=== PATIENT | female | born 1985 | race African-American/Black ===

== ENCOUNTER 2017-03-14 16:13 | Emergency (ER) | payer SELFPAY ==
[~2017-03-14] VITALS: Ht 180.3 cm; Wt 140.0 kg
[2017-03-14] MEDS ORDERED: SODIUM CHLORIDE 0.9% 1,000 ML IV ONE (16:35)
[2017-03-14] MEDS ORDERED: ONDANSETRON 4MG ODT PO STA (16:35)
[2017-03-14] MEDS ORDERED: MORPHINE SULFATE 4 MG/ML CPJ (NOT FOR IM USE) IV STA (16:35)
[2017-03-14 17:09] LABS: BASOPHILS % 1.1 % (0.0-2.0); EOSINOPHILS % 0.3 % (0.0-5.0); HEMATOCRIT. 35.4 % (36.0-48.0); LYMPHOCYTES % 10.3 % (20.0-50.0); MEAN CORPUSCULAR VOLUME 85.4 fL (81.0-99.0); MEAN PLATELET VOLUME 8.6 fl (7.4-10.4); MONOCYTES % 4.2 % (2.0-8.0); NEUTROPHILS % 84.1 % (40.0-76.0); PLATELET 296 x1000/uL (130-400); RED BLOOD CELL COUNT 4.15 mill/uL (4.2-5.4); RED CELL DISTRIBUTION WIDTH 14.8 % (11.6-14.6)
[2017-03-14 17:14] LABS: PROTHROMBIN TIME 10.7 sec (9.4-11.6)
[2017-03-14 17:19] LABS: HCG SCREEN NEGATIVE
[2017-03-14] MEDS ORDERED: SODIUM CHLORIDE 0.9% 1000ML BAG (SEPSIS BOLUS) IV ONE (17:30)
[2017-03-14] MEDS ORDERED: IOHEXOL-300 100 ML BOTTLE ONE (18:00)
[2017-03-14] MEDS ORDERED: SODIUM CHLORIDE 0.9% 10ML VIAL ONE (18:00)
[2017-03-14 18:16] LABS: CHLORIDE 103 mEq/L (98-107)
[2017-03-14 18:20] LABS: CARBON DIOXIDE 23 mEq/L (21-32)
[2017-03-14 18:25] LABS: TROPONIN I < 0.02 ng/mL (0.00-0.04)
[2017-03-14 18:38] LABS: CLARITY URINE CLOUDY (CLEAR); COLOR URINE YELLOW (YELLOW); GLUCOSE URINE NEGATIVE (NEGATIVE); KETONES URINE NEGATIVE (NEGATIVE); LEUKOCYTE ESTERASE URINE TRACE (NEGATIVE); NITRITE URINE NEGATIVE (NEGATIVE); OCCULT BLOOD URINE TRACE (NEGATIVE); PH URINE 8.5 (4.5-8.0); PROTEIN URINE 1+ (NEGATIVE); SPECIFIC GRAVITY URINE 1.016 (1.005-1.030); UROBILINOGEN URINE 0.2 E.U./dL (0.2-1.0)
[2017-03-14 21:30] VITALS: BP 156/79
== END 2017-03-14 21:50 | disposition home or self-care (01) ==
LOC: ER 16:30 → CANBEDREQ 23:27
DX: R11.2 Nausea with vomiting, unspecified (principal); R10.9 Unspecified abdominal pain; I51.7 Cardiomegaly; K44.9 Diaphragmatic hernia without obstruction or gangrene; I10 Essential (primary) hypertension; Z90.49 Acquired absence of other specified parts of digestive tract
CPT/HCPCS: 36415; 71010; 74177; 80053; 81001; 83605; 83690; 84484; 84703; 85025; 85610; 87040; 87086; 93005; 96361; 96374; 99285; A4216; J2270; Q0162; Q9967; J7030

== ENCOUNTER 2018-02-15 15:14 | Emergency (ER) | payer MEDICAID ==
[~2018-02-15] VITALS: Ht 172.7 cm; Wt 121.0 kg
[2018-02-15] MEDS ORDERED: ACETAMINOPHEN WITH CODEINE 300/30MG TABLET PO ONE (16:30)
[2018-02-15 17:09] VITALS: BP 160/90
== END 2018-02-15 18:14 | disposition home or self-care (01) ==
LOC: ER 15:16
DX: N63.10 Unspecified lump in the right breast, unspecified quadrant (principal)
CPT/HCPCS: 76641; 99284

== ENCOUNTER 2018-07-16 11:35 | Inpatient (IN) | payer MEDICAID ==
[~2018-07-16] VITALS: Ht 180.3 cm; Wt 113.4 kg
[2018-07-16] MEDS ORDERED: ONDANSETRON HCL 4MG/2ML INJ IV STA (12:30)
[2018-07-16] MEDS ORDERED: SODIUM CHLORIDE 0.9% 1,000 ML IV ONE (12:30)
[2018-07-16] MEDS ORDERED: METOCLOPRAMIDE HCL 10MG/2ML VIAL IV ONE (12:45)
[2018-07-16] MEDS ORDERED: MORPHINE SULFATE 4 MG/ML CPJ (NOT FOR IM USE) IV ONE (12:45)
[2018-07-16 13:10] LABS: BASOPHILS % 0.7 % (0.0-2.0); EOSINOPHILS % 1.5 % (0.0-5.0); HEMATOCRIT. 37.3 % (36.0-48.0); HEMOGLOBIN. 12.6 g/dL (12.0-16.0); MEAN CORPUSCULAR HEMOGLOBIN 29.1 pg (28.0-32.0); MEAN CORPUSCULAR VOLUME 86.3 fL (81.0-99.0); MEAN PLATELET VOLUME 8.4 fl (7.4-10.4); MONOCYTES % 8.2 % (2.0-8.0); NEUTROPHILS % 66.6 % (40.0-76.0); PLATELET 360 x1000/uL (130-400); RED BLOOD CELL COUNT 4.32 mill/uL (4.2-5.4); RED CELL DISTRIBUTION WIDTH 14.4 % (11.6-14.6)
[2018-07-16 13:17] LABS: INR 1.1; PROTHROMBIN TIME 10.9 sec (9.1-11.1)
[2018-07-16 13:20] LABS: CHLORIDE 104 mEq/L (98-107)
[2018-07-16 14:18] LABS: CLARITY URINE CLEAR (CLEAR); COLOR URINE YELLOW (YELLOW); KETONES URINE TRACE (NEGATIVE); LEUKOCYTE ESTERASE URINE TRACE (NEGATIVE); NITRITE URINE NEGATIVE (NEGATIVE); OCCULT BLOOD URINE NEGATIVE (NEGATIVE); PROTEIN URINE NEGATIVE (NEGATIVE)
[2018-07-16] MEDS ORDERED: KETOROLAC 30MG/ML VIAL IV ONE (16:30)
[2018-07-16] MEDS ORDERED: VISCOUS LIDOCAINE 2% 15 ML UDC PO ONE (16:30)
[2018-07-16] MEDS ORDERED: MAGNESIUM/ALUMINUM HYDROXIDE/SIMETHICONE 30ML UDC PO ONE (16:30)
[2018-07-16] MEDS ORDERED: LABETALOL HCL 20MG/4ML CARPUJECT IV ONE (17:15)
[2018-07-16] MEDS ORDERED: ONDANSETRON HCL 4MG/2ML INJ IV ONE (18:00)
[2018-07-16] MEDS ORDERED: LORAZEPAM 0.5MG TABLET PO PRN (19:15)
[2018-07-16] MEDS ORDERED: CLONIDINE 0.1MG TABLET PO PRN (19:15)
[2018-07-16] MEDS ORDERED: MAGNESIUM/ALUMINUM HYDROXIDE/SIMETHICONE 30ML UDC PO PRN (19:15)
[2018-07-16] MEDS ORDERED: IPRATROPIUM/ALBUTEROL 0.5-3(2.5)MG/3ML NEB INH PRN (19:15)
[2018-07-16] MEDS ORDERED: DOCUSATE SODIUM 100MG CAPSULE PO PRN (19:15)
[2018-07-16] MEDS ORDERED: GUAIFENESIN 200MG/10ML SUGAR FREE UDC PO PRN (19:15)
[2018-07-16] MEDS ORDERED: ACETAMINOPHEN 325MG TABLET PO PRN (19:15)
[2018-07-16] MEDS ORDERED: ONDANSETRON HCL 4MG/2ML INJ IV PRN (19:15)
[2018-07-16] MEDS ORDERED: POTASSIUM CHLORIDE 20MEQ TABLET SR PO NR (20:00)
[2018-07-16] MEDS ORDERED: KCL 20MEQ/100ML PREMIX 100 ML IV NR (20:15)
[2018-07-16] MEDS ORDERED: ZOLPIDEM TARTRATE 5MG TABLET PO PRN (21:00)
[2018-07-16] MEDS ORDERED: NA PHOS,M-B/NA PHOS,DI-BA ENEMA 118ML PR PRN (21:00)
[2018-07-17] MEDS: KETOROLAC 15MG/ML VIAL IV PRN ×2 (00:23→07:21)
[2018-07-17 01:00] VITALS: BP 123/82
[2018-07-17] MEDS ORDERED: CEFTRIAXONE 1 G PREMIX 50 ML IV SCH (02:00)
[2018-07-17 04:00] VITALS: BP 125/66
[2018-07-17] MEDS: METOCLOPRAMIDE 10MG/10 ML UDC PO SCH ×2 (06:50→12:40)
[2018-07-17] MEDS: SUCRALFATE 1 G/10 ML UDC PO SCH ×2 (06:50→12:40)
[2018-07-17 08:00] VITALS: BP 140/89
[2018-07-17] MEDS ORDERED: AMLODIPINE 10MG TABLET PO SCH (09:00)
[2018-07-17] MEDS ORDERED: PANTOPRAZOLE SODIUM 40 MG/VIAL IV SCH (09:00)
[2018-07-17 12:00] VITALS: BP 141/79
[2018-07-17 14:37] VITALS: BP 141/79
[2018-07-17 16:06] LABS: *AMPHETAMINES SCREEN URINE NEGATIVE (NEGATIVE)
[2018-07-17 16:07] LABS: *BARBITURATES SCREEN URINE NEGATIVE (NEGATIVE); *BENZODIAZEPINES SCREEN URINE NEGATIVE (NEGATIVE); *COCAINE SCREEN URINE NEGATIVE (NEGATIVE); METHADONE URINE SCREEN NEGATIVE (NEGATIVE); OPIATES URINE SCREEN NEGATIVE (NEGATIVE); PHENCYCLIDINE URINE SCREEN NEGATIVE (NEGATIVE)
[2018-07-17 16:20] LABS: CANNABINOID URINE SCREEN PRESUMTIVE POSITIVE (NEGATIVE)
== END 2018-07-17 15:15 | disposition home or self-care (01) | DRG 241 ==
LOC: ER 11:40 → 8WST 18:53 → EDBEDREQ 19:00 → ENRESERV 23:20 → 8WST 07-17 00:42 → UNDOADMIN 07-17 00:42 → 8WST 07-17 01:14 → UNDODISIN 07-17 15:15
PROVIDERS: ADMIT Internal Medicine; ATTEND Internal Medicine
DX: K29.70 Gastritis, unspecified, without bleeding (principal); E66.9 Obesity, unspecified; N39.0 Urinary tract infection, site not specified; F12.10 Cannabis abuse, uncomplicated; I10 Essential (primary) hypertension; I16.0 Hypertensive urgency; K21.9 Gastro-esophageal reflux disease without esophagitis
CPT/HCPCS: 36415; 74021; 80305; 81025; 83036; 84484; 93005; 96361; 96374; 96375; 96376; 99285; C9113; J0696; J1885; J2270; J2405; J2765; J3480; J3490; J7030; J7050; J8597

== ENCOUNTER 2019-04-16 11:50 | Emergency (ER) | payer MEDICAID ==
[~2019-04-16] VITALS: Ht 172.7 cm; Wt 114.0 kg
[2019-04-16] MEDS ORDERED: MORPHINE SULFATE 4 MG/ML CPJ (NOT FOR IM USE) IV STA (12:24)
[2019-04-16] MEDS ORDERED: SODIUM CHLORIDE 0.9% 1,000 ML IV ONE (12:24)
[2019-04-16] MEDS ORDERED: METOCLOPRAMIDE HCL 10MG/2ML VIAL IV ONE (12:30)
[2019-04-16 15:06] LABS: BASOPHILS % 0.5 % (0.0-2.0); EOSINOPHILS % 1.1 % (0.0-5.0); HEMATOCRIT. 30.7 % (36.0-48.0); HEMOGLOBIN. 10.6 g/dL (12.0-16.0); LYMPHOCYTES % 14.4 % (20.0-50.0); MEAN CORPUSCULAR HEMOGLOBIN 31.7 pg (28.0-32.0); MEAN PLATELET VOLUME 7.8 fl (7.4-10.4); MONOCYTES % 6.4 % (2.0-8.0); NEUTROPHILS % 77.6 % (40.0-76.0); PLATELET 299 x1000/uL (130-400); RED BLOOD CELL COUNT 3.34 mill/uL (4.2-5.4)
[2019-04-16 15:13] LABS: CHLORIDE 106 mEq/L (98-107)
[2019-04-16 15:33] LABS: CLARITY URINE CLEAR (CLEAR); COLOR URINE YELLOW (YELLOW); KETONES URINE 1+ (NEGATIVE); LEUKOCYTE ESTERASE URINE NEGATIVE (NEGATIVE); NITRITE URINE NEGATIVE (NEGATIVE); OCCULT BLOOD URINE NEGATIVE (NEGATIVE); PH URINE >=9.0 (4.5-8.0); PROTEIN URINE NEGATIVE (NEGATIVE)
[2019-04-16 15:34] LABS: PROTHROMBIN TIME 10.5 sec (9.6-11.0)
[2019-04-16 15:35] LABS: B-HCG QUANTITATIVE 16553 mIU/mL (<3)
[2019-04-16] MEDS ORDERED: MORPHINE SULFATE 4 MG/ML CPJ (NOT FOR IM USE) IV ONE (16:15)
[2019-04-16 17:30] VITALS: BP 151/67
== END 2019-04-16 17:42 | disposition home or self-care (01) ==
LOC: ER 12:34
DX: O21.9 Vomiting of pregnancy, unspecified (principal); O26.892 Other specified pregnancy related conditions, second trimester; R10.9 Unspecified abdominal pain; R51 Headache; R11.0 Nausea; Z3A.17 17 weeks gestation of pregnancy; Z90.49 Acquired absence of other specified parts of digestive tract
CPT/HCPCS: 36415; 76805; 80053; 81003; 82962; 83605; 83690; 84702; 85025; 85610; 96374; 96375; 96376; 99284; J2270; J2765; J7030; Z7610

== ENCOUNTER 2019-11-04 18:48 | Inpatient (IN) | payer MEDICAID ==
[~2019-11-04] VITALS: Ht 180.3 cm; Wt 113.4 kg
[2019-11-04] MEDS ORDERED: SODIUM CHLORIDE 0.9% 1,000 ML IV ONE (19:18)
[2019-11-04] MEDS ORDERED: ONDANSETRON HCL 4MG/2ML INJ IV ONE (19:30)
[2019-11-04] MEDS ORDERED: MORPHINE SULFATE 4 MG/ML CPJ (NOT FOR IM USE) IV ONE ×2 (19:45→22:30)
[2019-11-04 19:58] LABS: BASOPHILS % 0.9 % (0.0-2.0); HEMATOCRIT. 37.7 % (36.0-48.0); HEMOGLOBIN. 12.9 g/dL (12.0-16.0); MEAN CORPUSCULAR HEMOGLOBIN 31.8 pg (28.0-32.0); MEAN CORPUSCULAR VOLUME 92.8 fL (81.0-99.0); MEAN PLATELET VOLUME 8.1 fl (7.4-10.4); MONOCYTES % 8.3 % (2.0-8.0); NEUTROPHILS % 77.8 % (40.0-76.0); PLATELET 307 x1000/uL (130-400); RED BLOOD CELL COUNT 4.06 mill/uL (4.2-5.4); RED CELL DISTRIBUTION WIDTH 14.2 % (11.6-14.6)
[2019-11-04 20:01] LABS: CHLORIDE 106 mEq/L (98-107)
[2019-11-04 20:26] LABS: CLARITY URINE CLOUDY (CLEAR); COLOR URINE DARK YELLOW (YELLOW); KETONES URINE TRACE (NEGATIVE); LEUKOCYTE ESTERASE URINE 1+ (NEGATIVE); NITRITE URINE NEGATIVE (NEGATIVE); OCCULT BLOOD URINE NEGATIVE (NEGATIVE); PROTEIN URINE 1+ (NEGATIVE); SPECIFIC GRAVITY URINE 1.029 (1.005-1.030)
[2019-11-04 20:27] LABS: B-HCG QUANTITATIVE 25194 mIU/mL (<3)
[2019-11-04 20:45] LABS: *AMPHETAMINES SCREEN URINE NEGATIVE (NEGATIVE)
[2019-11-04 20:46] LABS: *BARBITURATES SCREEN URINE NEGATIVE (NEGATIVE); *BENZODIAZEPINES SCREEN URINE NEGATIVE (NEGATIVE); *COCAINE SCREEN URINE NEGATIVE (NEGATIVE); METHADONE URINE SCREEN NEGATIVE (NEGATIVE); OPIATES URINE SCREEN NEGATIVE (NEGATIVE); PHENCYCLIDINE URINE SCREEN NEGATIVE (NEGATIVE)
[2019-11-04 20:48] LABS: CANNABINOID URINE SCREEN PRESUMTIVE POSITIVE (NEGATIVE)
[2019-11-05] MEDS ORDERED: CEFTRIAXONE 1 G PREMIX 50 ML IV SCH ×2 (00:07→21:00)
[2019-11-05] MEDS ORDERED: ONDANSETRON HCL 4MG/2ML INJ IV PRN ×2 (02:30→04:00)
[2019-11-05 02:58] VITALS: BP 142/86
[2019-11-05] MEDS ORDERED: MORPHINE SULFATE 2 MG/ML CPJ (NOT FOR IM USE) IV PRN (04:00)
[2019-11-05] MEDS: DEXT 5%/0.45% NACL KCL 20MEQ/L 1,000 ML IV SCH ×2 (05:12→18:20)
[2019-11-05] MEDS ORDERED: POTASSIUM CHLORIDE 20MEQ TABLET SR PO SCH (09:00)
[2019-11-05] MEDS: ACETAMINOPHEN 325MG TABLET PO PRN ×2 (10:19→18:26)
[2019-11-05 20:00] VITALS: BP 142/79
[2019-11-05] MEDS ORDERED: METHYLDOPA 250MG TABLET PO SCH (21:00)
[2019-11-05] MEDS ORDERED: FOLIC ACID 1 MG, THIAMINE HCL 100 MG, MVI, ADULT NO.1 10 ML in DEXTROSE 5% WATER 1,000 ML IV SCH ×4 (23:30)
[2019-11-06] VITALS: BP 146/96
[2019-11-06] MEDS ORDERED: CEFTRIAXONE 1 G PREMIX 50 ML IV SCH (01:00)
[2019-11-06 04:00] VITALS: BP 131/80
[2019-11-06 05:37] LABS: CHLORIDE 104 mEq/L (98-107)
[2019-11-06] MEDS ORDERED: METHYLDOPA 250MG TABLET PO SCH ×2 (06:00→13:00)
[2019-11-06 06:38] LABS: BASOPHILS % 0.7 % (0.0-2.0); EOSINOPHILS % 4.1 % (0.0-5.0); HEMATOCRIT. 32.8 % (36.0-48.0); HEMOGLOBIN. 11.4 g/dL (12.0-16.0); LYMPHOCYTES % 25.8 % (20.0-50.0); MEAN CORPUSCULAR VOLUME 92.5 fL (81.0-99.0); MEAN PLATELET VOLUME 8.3 fl (7.4-10.4); MONOCYTES % 8.9 % (2.0-8.0); NEUTROPHILS % 60.5 % (40.0-76.0); PLATELET 262 x1000/uL (130-400); RED BLOOD CELL COUNT 3.55 mill/uL (4.2-5.4)
[2019-11-06 08:00] VITALS: BP 146/82
[2019-11-06] MEDS ORDERED: DEXT 5%/0.45% NACL KCL 20MEQ/L 1,000 ML IV SCH (08:00)
[2019-11-06] MEDS ORDERED: FAMOTIDINE 20MG/2ML VIAL IV SCH (09:00)
[2019-11-06] MEDS ORDERED: POTASSIUM CHLORIDE 20MEQ TABLET SR PO NR (09:15)
[2019-11-06 12:00] VITALS: BP 153/90
[2019-11-06] MEDS ORDERED: METH500T22 MT (12:06)
[2019-11-06] MEDS ORDERED: CEPH-569 MT (12:06)
[2019-11-06 12:32] VITALS: BP 153/90
== END 2019-11-06 13:41 | disposition home or self-care (01) | DRG 566 ==
LOC: ER 18:48 → 6EST 11-05 → EDBEDREQ 11-05 00:10 → EDBEDREQTM 11-05 00:10 → EDBEDREQDT 11-05 00:10 → ENRESERV 11-05 01:40
PROVIDERS: ADMIT Internal Medicine; ATTEND Internal Medicine
DX: O23.01 Infections of kidney in pregnancy, first trimester (principal); O10.911 Unspecified pre-existing hypertension complicating pregnancy, first trimester; O99.321 Drug use complicating pregnancy, first trimester; O99.211 Obesity complicating pregnancy, first trimester; O99.281 Endocrine, nutritional and metabolic diseases complicating pregnancy, first trimester; O21.1 Hyperemesis gravidarum with metabolic disturbance; F12.90 Cannabis use, unspecified, uncomplicated; E66.9 Obesity, unspecified; I16.0 Hypertensive urgency; Z3A.01 Less than 8 weeks gestation of pregnancy; Z90.49 Acquired absence of other specified parts of digestive tract; Z71.51 Drug abuse counseling and surveillance of drug abuser
CPT/HCPCS: 36415; 76801; 80048; 80053; 80305; 81003; 84702; 85025; 86850; 86900; 93970; 99285; J0696; J2270; J2405; J3411; J3490; J7030; J7070

== ENCOUNTER 2019-12-26 12:45 | Emergency (ER) | payer MEDICAID ==
[~2019-12-26] VITALS: Ht 167.6 cm; Wt 90.0 kg
[~2019-12-26 12:45] MED LIST: CEPH-569 MT; METH500T22 MT
[2019-12-26] MEDS ORDERED: SODIUM CHLORIDE 0.9% 1,000 ML IV ONE (13:31)
[2019-12-26] MEDS ORDERED: FAMOTIDINE 20MG/2ML VIAL IV ONE (13:45)
[2019-12-26] MEDS ORDERED: ONDANSETRON HCL 4MG/2ML INJ IV ONE ×2 (13:45→17:45)
[2019-12-26 14:15] LABS: BASOPHILS % 0.4 % (0.0-2.0); EOSINOPHILS % 2.6 % (0.0-5.0); HEMATOCRIT. 34.8 % (36.0-48.0); HEMOGLOBIN. 12.3 g/dL (12.0-16.0); LYMPHOCYTES % 15.9 % (20.0-50.0); MEAN CORPUSCULAR HEMOGLOBIN 33.6 pg (28.0-32.0); MEAN CORPUSCULAR VOLUME 94.7 fL (81.0-99.0); MONOCYTES % 6.4 % (2.0-8.0); NEUTROPHILS % 74.7 % (40.0-76.0); PLATELET 328 x1000/uL (130-400); RED BLOOD CELL COUNT 3.67 mill/uL (4.2-5.4); RED CELL DISTRIBUTION WIDTH 14.4 % (11.6-14.6)
[2019-12-26 14:23] LABS: CHLORIDE 107 mEq/L (98-107)
[2019-12-26 14:45] LABS: B-HCG QUANTITATIVE 25080 mIU/mL (<3)
[2019-12-26 15:22] LABS: CLARITY URINE CLEAR (CLEAR); COLOR URINE YELLOW (YELLOW); KETONES URINE 2+ (NEGATIVE); LEUKOCYTE ESTERASE URINE NEGATIVE (NEGATIVE); NITRITE URINE NEGATIVE (NEGATIVE); OCCULT BLOOD URINE NEGATIVE (NEGATIVE); PH URINE 7.5 (4.5-8.0); PROTEIN URINE 1+ (NEGATIVE); SPECIFIC GRAVITY URINE 1.019 (1.005-1.030)
[2019-12-26 15:41] LABS: *AMPHETAMINES SCREEN URINE NEGATIVE (NEGATIVE); *BARBITURATES SCREEN URINE NEGATIVE (NEGATIVE); *BENZODIAZEPINES SCREEN URINE NEGATIVE (NEGATIVE); *COCAINE SCREEN URINE NEGATIVE (NEGATIVE)
[2019-12-26 15:42] LABS: METHADONE URINE SCREEN NEGATIVE (NEGATIVE); OPIATES URINE SCREEN NEGATIVE (NEGATIVE); PHENCYCLIDINE URINE SCREEN NEGATIVE (NEGATIVE)
[2019-12-26 15:50] LABS: CANNABINOID URINE SCREEN PRESUMTIVE POSITIVE (NEGATIVE)
[2019-12-26] MEDS ORDERED: MORPHINE SULFATE 4 MG/ML CPJ (NOT FOR IM USE) IV ONE (17:45)
[2019-12-26 23:20] VITALS: BP 128/72
== END 2019-12-26 23:22 | disposition home or self-care (01) ==
LOC: ER 12:45
DX: O21.0 Mild hyperemesis gravidarum (principal); O10.012 Pre-existing essential hypertension complicating pregnancy, second trimester; M54.9 Dorsalgia, unspecified; F12.10 Cannabis abuse, uncomplicated; Z3A.14 14 weeks gestation of pregnancy; Z90.49 Acquired absence of other specified parts of digestive tract
CPT/HCPCS: 36415; 76805; 80053; 80305; 81003; 84702; 85025; 96361; 96374; 96375; 96376; 99285; J2270; J2405; J3490; J7030

== ENCOUNTER 2020-01-25 15:26 | Inpatient (IN) | payer MEDICAID ==
[~2020-01-25] VITALS: Ht 175.3 cm; Wt 130.2 kg
[2020-01-25] MEDS ORDERED: SODIUM CHLORIDE 0.9% 1,000 ML IV ONE ×3 (15:35→19:14)
[2020-01-25] MEDS ORDERED: ONDANSETRON HCL 4MG/2ML INJ IV STA ×2 (15:35→17:26)
[2020-01-25] MEDS ORDERED: ACETAMINOPHEN 325MG TABLET PO ONE (15:45)
[2020-01-25 16:32] LABS: HEMATOCRIT. 31.3 % (36.0-48.0); MEAN CORPUSCULAR HEMOGLOBIN 33.4 pg (28.0-32.0); MEAN CORPUSCULAR VOLUME 94.8 fL (81.0-99.0); MEAN PLATELET VOLUME 8.5 fl (7.4-10.4); PLATELET 209 x1000/uL (130-400); RED CELL DISTRIBUTION WIDTH 13.8 % (11.6-14.6)
[2020-01-25 16:40] LABS: CHLORIDE 108 mEq/L (98-107)
[2020-01-25 16:42] LABS: PROTHROMBIN TIME 10.8 sec (9.6-11.0)
[2020-01-25 16:46] LABS: ETHANOL BLOOD < 10 mg/dL
[2020-01-25 17:20] LABS: PLATELET ESTIMATE NORMAL
[2020-01-25] MEDS ORDERED: MORPHINE SULFATE 4 MG/ML CPJ (NOT FOR IM USE) IV STA (17:26)
[2020-01-25] MEDS ORDERED: MORPHINE SULFATE 4 MG/ML CPJ (NOT FOR IM USE) IV ONE ×3 (19:30→23:45)
[2020-01-25] MEDS ORDERED: METOCLOPRAMIDE HCL 10MG/2ML VIAL IV ONE (20:15)
[2020-01-25] MEDS ORDERED: ONDANSETRON HCL 4MG/2ML INJ IV ONE (23:45)
[2020-01-26 00:20] VITALS: BP 133/86
[2020-01-26] MEDS: DEXT 5%/LACTATED RINGERS 1,000 ML IV SCH ×3 (03:38→17:50)
[2020-01-26 04:00] VITALS: BP 153/91
[2020-01-26] MEDS: HYDROMORPHONE HCL/PF 2MG/ML CPJ IV PRN ×4 (06:27→23:36)
[2020-01-26 08:00] VITALS: BP 128/67
[2020-01-26 08:52] LABS: MEAN CORPUSCULAR HEMOGLOBIN 32.6 pg (28.0-32.0); MEAN CORPUSCULAR VOLUME 94.6 fL (81.0-99.0); MEAN PLATELET VOLUME 7.8 fl (7.4-10.4); PLATELET 198 x1000/uL (130-400); RED BLOOD CELL COUNT 3.06 mill/uL (4.2-5.4); RED CELL DISTRIBUTION WIDTH 13.7 % (11.6-14.6)
[2020-01-26 10:09] LABS: PLATELET ESTIMATE NORMAL
[2020-01-26 11:07] LABS: CLARITY URINE CLOUDY (CLEAR); COLOR URINE DARK YELLOW (YELLOW); KETONES URINE 1+ (NEGATIVE); LEUKOCYTE ESTERASE URINE NEGATIVE (NEGATIVE); NITRITE URINE POSITIVE (NEGATIVE); OCCULT BLOOD URINE NEGATIVE (NEGATIVE); PROTEIN URINE TRACE (NEGATIVE); SPECIFIC GRAVITY URINE 1.026 (1.005-1.030)
[2020-01-26 12:19] LABS: HEPATITIS B SURFACE ANTIGEN NEGATIVE
[2020-01-26 16:00] VITALS: BP 171/97
[2020-01-26 17:40] VITALS: BP 162/102
[2020-01-26 20:00] VITALS: BP 165/87
[2020-01-27] VITALS: BP 155/86
[2020-01-27 04:00] VITALS: BP 165/85
[2020-01-27] MEDS ORDERED: ACETAMINOPHEN WITH CODEINE 300/30MG TABLET PO PRN (07:00)
[2020-01-27] MEDS ORDERED: LABETALOL HCL 100MG TABLET PO SCH (07:45)
[2020-01-27 08:00] VITALS: BP 144/79
[2020-01-27] MEDS: HYDROMORPHONE HCL/PF 2MG/ML CPJ IV PRN (09:19)
[2020-01-27 11:23] VITALS: BP 120/70
[2020-01-27 14:57] LABS: METHADONE URINE SCREEN NEGATIVE (NEGATIVE)
[2020-01-27 14:58] LABS: PHENCYCLIDINE URINE SCREEN NEGATIVE (NEGATIVE)
[2020-01-27 15:00] LABS: *COCAINE SCREEN URINE NEGATIVE (NEGATIVE)
[2020-01-27 15:04] LABS: *BENZODIAZEPINES SCREEN URINE NEGATIVE (NEGATIVE)
[2020-01-27 15:05] LABS: *AMPHETAMINES SCREEN URINE NEGATIVE (NEGATIVE)
[2020-01-27 15:06] LABS: *BARBITURATES SCREEN URINE NEGATIVE (NEGATIVE)
[2020-01-27 15:09] LABS: CANNABINOID URINE SCREEN PRESUMTIVE POSITIVE (NEGATIVE); OPIATES URINE SCREEN PRESUMTIVE POSITIVE (NEGATIVE)
[2020-01-28 06:10] LABS: HIV SCREEN 4G Non Reactive (Non Reactive)
== END 2020-01-27 11:48 | disposition home or self-care (01) | DRG 566 ==
LOC: ER 15:26 → ENRESERV 20:34 → 6EST 01-26 00:01
PROVIDERS: ADMIT Specialist; ATTEND Specialist
DX: O16.2 Unspecified maternal hypertension, second trimester (principal); O21.9 Vomiting of pregnancy, unspecified; R32 Unspecified urinary incontinence; O34.219 Maternal care for unspecified type scar from previous cesarean delivery; O99.212 Obesity complicating pregnancy, second trimester; E66.9 Obesity, unspecified; Z3A.18 18 weeks gestation of pregnancy; Z79.2 Long term (current) use of antibiotics; Z90.49 Acquired absence of other specified parts of digestive tract; Z64.0 Problems related to unwanted pregnancy
CPT/HCPCS: 36415; 72195; 74181; 76770; 76805; 76815; 80053; 80305; 80320; 81003; 84702; 85025; 86592; 86762; 86850; 86900; 87077; 87186; 87340; 87389; 93005; 96374; 99291; J1170; J2270; J2405; J2765; J7030; J7121; G0480

== ENCOUNTER 2020-02-01 15:00 | Emergency (ER) | payer MEDICAID ==
[~2020-02-01] VITALS: Ht 170.2 cm; Wt 117.0 kg
[2020-02-01] MEDS ORDERED: ONDANSETRON HCL 4MG/2ML INJ IV STA (15:43)
[2020-02-01] MEDS ORDERED: MORPHINE SULFATE 4 MG/ML CPJ (NOT FOR IM USE) IV STA (15:43)
[2020-02-01] MEDS ORDERED: SODIUM CHLORIDE 0.9% 1,000 ML IV ONE ×2 (15:43)
[2020-02-01] MEDS ORDERED: LABETALOL 5MG/ML SYR 20 MG/4 ML SYRINGE IV ONE (15:45)
[2020-02-01 16:06] LABS: BASOPHILS % 0.5 % (0.0-2.0); EOSINOPHILS % 1.5 % (0.0-5.0); HEMATOCRIT. 35.4 % (36.0-48.0); HEMOGLOBIN. 12.3 g/dL (12.0-16.0); LYMPHOCYTES % 16.7 % (20.0-50.0); MEAN CORPUSCULAR HEMOGLOBIN 32.5 pg (28.0-32.0); MEAN CORPUSCULAR VOLUME 93.3 fL (81.0-99.0); MEAN PLATELET VOLUME 8.5 fl (7.4-10.4); MONOCYTES % 5.9 % (2.0-8.0); NEUTROPHILS % 75.4 % (40.0-76.0); PLATELET 259 x1000/uL (130-400); RED CELL DISTRIBUTION WIDTH 13.3 % (11.6-14.6)
[2020-02-01 16:13] LABS: CHLORIDE 105 mEq/L (98-107)
[2020-02-01 16:39] LABS: B-HCG QUANTITATIVE 8216 mIU/mL (<3)
[2020-02-01 16:51] LABS: CLARITY URINE CLOUDY (CLEAR); COLOR URINE DARK YELLOW (YELLOW); KETONES URINE NEGATIVE (NEGATIVE); LEUKOCYTE ESTERASE URINE 2+ (NEGATIVE); NITRITE URINE NEGATIVE (NEGATIVE); OCCULT BLOOD URINE 2+ (NEGATIVE); PROTEIN URINE 1+ (NEGATIVE); SPECIFIC GRAVITY URINE 1.009 (1.005-1.030)
[2020-02-01] MEDS ORDERED: CEFTRIAXONE 1 G PREMIX 50 ML IV ONE (17:00)
[2020-02-01] MEDS ORDERED: KCL 20MEQ/100ML PREMIX 100 ML IV ONE (17:00)
[2020-02-01 17:03] LABS: *AMPHETAMINES SCREEN URINE NEGATIVE (NEGATIVE); *BARBITURATES SCREEN URINE NEGATIVE (NEGATIVE); *BENZODIAZEPINES SCREEN URINE NEGATIVE (NEGATIVE); *COCAINE SCREEN URINE NEGATIVE (NEGATIVE); METHADONE URINE SCREEN NEGATIVE (NEGATIVE); OPIATES URINE SCREEN NEGATIVE (NEGATIVE)
[2020-02-01 17:04] LABS: PHENCYCLIDINE URINE SCREEN NEGATIVE (NEGATIVE)
[2020-02-01 17:07] LABS: CANNABINOID URINE SCREEN PRESUMTIVE POSITIVE (NEGATIVE)
[2020-02-01] MEDS ORDERED: MORPHINE SULFATE 4 MG/ML CPJ (NOT FOR IM USE) IV ONE (19:00)
[2020-02-01 20:30] VITALS: BP 156/79
== END 2020-02-01 20:30 | disposition home or self-care (01) ==
LOC: ER 15:00
DX: O26.892 Other specified pregnancy related conditions, second trimester (principal); O10.012 Pre-existing essential hypertension complicating pregnancy, second trimester; R10.9 Unspecified abdominal pain; R11.10 Vomiting, unspecified; Z3A.19 19 weeks gestation of pregnancy
CPT/HCPCS: 36415; 74181; 76805; 80053; 80305; 81003; 83690; 84702; 85025; 86850; 86900; 86901; 93005; 96361; 96365; 96375; 96376; 99285; J0696; J2270; J2405; J3480; J3490; J7030

== ENCOUNTER 2020-02-02 20:01 | Emergency (ER) | payer MEDICAID ==
[~2020-02-02] VITALS: Ht 182.9 cm; Wt 113.0 kg
[2020-02-02] MEDS ORDERED: ACETAMINOPHEN 325MG TABLET PO STA (23:48)
[2020-02-03] MEDS ORDERED: LABETALOL 5MG/ML SYR 20 MG/4 ML SYRINGE IV ONE
[2020-02-03 00:12] LABS: BASOPHILS % 0.4 % (0.0-2.0); EOSINOPHILS % 0.3 % (0.0-5.0); HEMATOCRIT. 32.8 % (36.0-48.0); HEMOGLOBIN. 11.6 g/dL (12.0-16.0); LYMPHOCYTES % 11.2 % (20.0-50.0); MEAN CORPUSCULAR VOLUME 93.7 fL (81.0-99.0); MONOCYTES % 4.6 % (2.0-8.0); NEUTROPHILS % 83.5 % (40.0-76.0); PLATELET 283 x1000/uL (130-400); RED CELL DISTRIBUTION WIDTH 13.2 % (11.6-14.6)
[2020-02-03 00:18] LABS: CHLORIDE 105 mEq/L (98-107)
[2020-02-03 00:21] LABS: PROTHROMBIN TIME 10.9 sec (9.6-11.0)
[2020-02-03 00:27] LABS: HCG SCREEN POSITIVE
[2020-02-03 00:42] LABS: B-HCG QUANTITATIVE 6952 mIU/mL (<3)
[2020-02-03 01:52] LABS: COLOR URINE DK YELLOW (YELLOW); KETONES URINE 4+ (NEGATIVE); LEUKOCYTE ESTERASE URINE 2+ (NEGATIVE); NITRITE URINE NEGATIVE (NEGATIVE); OCCULT BLOOD URINE NEGATIVE (NEGATIVE); PROTEIN URINE 2+ (NEGATIVE); SPECIFIC GRAVITY URINE 1.026 (1.005-1.030)
[2020-02-03 01:54] LABS: CLARITY URINE HAZY (CLEAR)
[2020-02-03 02:02] LABS: *AMPHETAMINES SCREEN URINE NEGATIVE (NEGATIVE); *BARBITURATES SCREEN URINE NEGATIVE (NEGATIVE); *BENZODIAZEPINES SCREEN URINE NEGATIVE (NEGATIVE); *COCAINE SCREEN URINE NEGATIVE (NEGATIVE)
[2020-02-03 02:03] LABS: METHADONE URINE SCREEN NEGATIVE (NEGATIVE); PHENCYCLIDINE URINE SCREEN NEGATIVE (NEGATIVE)
[2020-02-03 02:08] LABS: CANNABINOID URINE SCREEN PRESUMTIVE POSITIVE (NEGATIVE); OPIATES URINE SCREEN PRESUMTIVE POSITIVE (NEGATIVE)
[2020-02-03 07:33] VITALS: BP 155/89
== END 2020-02-03 07:23 | disposition home or self-care (01) ==
LOC: ER 20:01
DX: O26.892 Other specified pregnancy related conditions, second trimester (principal); R10.2 Pelvic and perineal pain; O13.2 Gestational [pregnancy-induced] hypertension without significant proteinuria, second trimester; Z3A.20 20 weeks gestation of pregnancy
CPT/HCPCS: 36415; 76805; 80053; 80305; 81003; 83690; 84702; 84703; 85025; 85610; 93005; 96374; 99285; J3490

== ENCOUNTER 2020-02-23 17:12 | Inpatient (IN) | payer MEDICAID ==
[~2020-02-23] VITALS: Ht 180.3 cm; Wt 115.7 kg
[2020-02-23] MEDS ORDERED: HYDRALAZINE 20MG/ML VIAL IV NR (17:57)
[2020-02-23] MEDS ORDERED: LABETALOL HCL 200MG TABLET PO SCH (17:58)
[2020-02-23] MEDS ORDERED: ONDANSETRON HCL 4MG/2ML INJ IM NR (18:15)
[2020-02-23 18:43] LABS: BASOPHILS % 0.3 % (0.0-2.0); HEMOGLOBIN. 10.4 g/dL (12.0-16.0); LYMPHOCYTES % 14.7 % (20.0-50.0); MEAN CORPUSCULAR HEMOGLOBIN 34.5 pg (28.0-32.0); MEAN CORPUSCULAR VOLUME 96.1 fL (81.0-99.0); MEAN PLATELET VOLUME 7.8 fl (7.4-10.4); MONOCYTES % 7.9 % (2.0-8.0); NEUTROPHILS % 75.1 % (40.0-76.0); PLATELET 275 x1000/uL (130-400); RED BLOOD CELL COUNT 3.01 mill/uL (4.2-5.4); RED CELL DISTRIBUTION WIDTH 14.5 % (11.6-14.6)
[2020-02-23 18:46] LABS: CLARITY URINE CLEAR (CLEAR); COLOR URINE DK YELLOW (YELLOW); KETONES URINE 3+ (NEGATIVE); LEUKOCYTE ESTERASE URINE 2+ (NEGATIVE); NITRITE URINE NEGATIVE (NEGATIVE); OCCULT BLOOD URINE NEGATIVE (NEGATIVE); PROTEIN URINE TRACE (NEGATIVE); SPECIFIC GRAVITY URINE 1.024 (1.005-1.030)
[2020-02-23 18:47] LABS: CHLORIDE 106 mEq/L (98-107)
[2020-02-23 18:53] LABS: D-DIMER 0.61 mg/L FEU (<0.50); PARTIAL THROMBOPLASTIN TIME 27.5 sec (23.4-31.0); PROTHROMBIN TIME 10.8 sec (9.6-11.0)
[2020-02-23 19:02] LABS: *AMPHETAMINES SCREEN URINE NEGATIVE (NEGATIVE); *BARBITURATES SCREEN URINE NEGATIVE (NEGATIVE); *BENZODIAZEPINES SCREEN URINE NEGATIVE (NEGATIVE); *COCAINE SCREEN URINE NEGATIVE (NEGATIVE)
[2020-02-23 19:03] LABS: METHADONE URINE SCREEN NEGATIVE (NEGATIVE); OPIATES URINE SCREEN NEGATIVE (NEGATIVE); PHENCYCLIDINE URINE SCREEN NEGATIVE (NEGATIVE)
[2020-02-23 19:07] LABS: CANNABINOID URINE SCREEN PRESUMTIVE POSITIVE (NEGATIVE)
[2020-02-23] MEDS ORDERED: LABETALOL HCL 5MG/ML VIAL 20ML IV PRN ×3 (20:00)
[2020-02-23] MEDS: BUTORPHANOL TARTRATE 2 MG/ML VIAL IM PRN ×2 (20:07→23:55)
[2020-02-24] MEDS: LACTATED RINGERS 1,000 ML IV SCH ×2 (02:05→09:46)
[2020-02-24] MEDS ORDERED: LABETALOL HCL 5MG/ML VIAL 20ML IV PRN ×3 (02:15→03:15)
[2020-02-24] MEDS: LABETALOL HCL 5MG/ML VIAL 20ML IV SCH ×2 (04:05→18:46)
[2020-02-24] MEDS ORDERED: FERROUS SULFATE 325MG TABLET PO SCH (09:00)
[2020-02-24] MEDS ORDERED: PRENATAL VIT/FE FUMARATE/FA TABLET PO SCH (09:00)
[2020-02-24 10:55] LABS: BASOPHILS % 0.5 % (0.0-2.0); EOSINOPHILS % 1.2 % (0.0-5.0); HEMATOCRIT. 29.3 % (36.0-48.0); HEMOGLOBIN. 10.4 g/dL (12.0-16.0); LYMPHOCYTES % 12.9 % (20.0-50.0); MEAN CORPUSCULAR HEMOGLOBIN 33.9 pg (28.0-32.0); MEAN CORPUSCULAR VOLUME 95.4 fL (81.0-99.0); MEAN PLATELET VOLUME 7.5 fl (7.4-10.4); MONOCYTES % 7.1 % (2.0-8.0); NEUTROPHILS % 78.3 % (40.0-76.0); PLATELET 267 x1000/uL (130-400); RED BLOOD CELL COUNT 3.07 mill/uL (4.2-5.4); RED CELL DISTRIBUTION WIDTH 14.3 % (11.6-14.6)
[2020-02-24 13:44] LABS: HEPATITIS B SURFACE ANTIGEN NEGATIVE
[2020-02-24] MEDS ORDERED: ONDANSETRON HCL 4MG/2ML INJ IV NR ×2 (14:00→14:15)
[2020-02-24] MEDS ORDERED: PANTOPRAZOLE SODIUM 40 MG/VIAL IV NR ×2 (14:15→20:15)
[2020-02-24] MEDS ORDERED: MAGNESIUM 4 G PREMIX 100 ML IV NR (14:15)
[2020-02-24] MEDS: MAGNESIUM 20 G PREMIX (L & D) 500 ML IV SCH (15:00)
[2020-02-24] MEDS ORDERED: MAGNESIUM 2 G PREMIX 50 ML IV NR (15:00)
[2020-02-24] MEDS ORDERED: HYDRALAZINE 20MG/ML VIAL IV SCH (18:00)
[2020-02-24] MEDS: ACETAMINOPHEN 325MG TABLET PO PRN (20:15)
[2020-02-24 20:26] LABS: CLARITY URINE CLEAR (CLEAR); COLOR URINE YELLOW (YELLOW); KETONES URINE TRACE (NEGATIVE); LEUKOCYTE ESTERASE URINE NEGATIVE (NEGATIVE); NITRITE URINE NEGATIVE (NEGATIVE); OCCULT BLOOD URINE 2+ (NEGATIVE); PH URINE 7.5 (4.5-8.0); PROTEIN URINE NEGATIVE (NEGATIVE); SPECIFIC GRAVITY URINE 1.009 (1.005-1.030)
[2020-02-24 20:32] LABS: CHLORIDE 106 mEq/L (98-107)
[2020-02-24 20:36] LABS: PARTIAL THROMBOPLASTIN TIME 26.1 sec (23.4-31.0); PROTHROMBIN TIME 10.5 sec (9.6-11.0)
[2020-02-24 20:50] LABS: BASOPHILS % 0.3 % (0.0-2.0); EOSINOPHILS % 1.3 % (0.0-5.0); HEMATOCRIT. 30.6 % (36.0-48.0); HEMOGLOBIN. 10.8 g/dL (12.0-16.0); LYMPHOCYTES % 15.6 % (20.0-50.0); MEAN CORPUSCULAR HEMOGLOBIN 33.5 pg (28.0-32.0); MEAN PLATELET VOLUME 7.8 fl (7.4-10.4); MONOCYTES % 7.9 % (2.0-8.0); NEUTROPHILS % 74.9 % (40.0-76.0); PLATELET 274 x1000/uL (130-400); RED BLOOD CELL COUNT 3.22 mill/uL (4.2-5.4); RED CELL DISTRIBUTION WIDTH 14.2 % (11.6-14.6)
[2020-02-24] MEDS: MORPHINE SULFATE 2 MG/ML CPJ (NOT FOR IM USE) IV PRN (21:27)
[2020-02-25] MEDS: LABETALOL HCL 5MG/ML VIAL 20ML IV SCH ×2 (00:05→06:00)
[2020-02-25] MEDS: HYDRALAZINE HCL 10MG TABLET PO SCH ×4 (00:56→18:11)
[2020-02-25] MEDS: MAGNESIUM 20 G PREMIX (L & D) 500 ML IV SCH (01:05)
[2020-02-25] MEDS ORDERED: MORPHINE SULFATE 4 MG/ML CPJ (NOT FOR IM USE) IV PRN ×2 (01:30→05:30)
[2020-02-25] MEDS: LACTATED RINGERS 1,000 ML IV SCH (05:10)
[2020-02-25] MEDS ORDERED: MORPHINE SULFATE 2 MG/ML CPJ (NOT FOR IM USE) IV PRN (06:00)
[2020-02-25 06:11] VITALS: BP 161/80
[2020-02-25] MEDS: MORPHINE SULFATE 2 MG/ML CPJ (NOT FOR IM USE) IV PRN (06:11)
[2020-02-25 06:43] LABS: CLARITY URINE CLEAR (CLEAR); COLOR URINE YELLOW (YELLOW); KETONES URINE 1+ (NEGATIVE); LEUKOCYTE ESTERASE URINE 1+ (NEGATIVE); NITRITE URINE NEGATIVE (NEGATIVE); OCCULT BLOOD URINE 3+ (NEGATIVE); PH URINE 6.5 (4.5-8.0); PROTEIN URINE TRACE (NEGATIVE); SPECIFIC GRAVITY URINE 1.018 (1.005-1.030)
[2020-02-25 06:43] LABS: CHLORIDE 104 mEq/L (98-107)
[2020-02-25] MEDS: LABETALOL HCL 200MG TABLET PO SCH ×3 (07:18→20:12)
[2020-02-25 07:34] LABS: D-DIMER 0.75 mg/L FEU (<0.50); PARTIAL THROMBOPLASTIN TIME 25.6 sec (23.4-31.0); PROTHROMBIN TIME 10.4 sec (9.6-11.0)
[2020-02-25 07:50] LABS: BASOPHILS % 0.4 % (0.0-2.0); HEMATOCRIT. 29.2 % (36.0-48.0); HEMOGLOBIN. 10.1 g/dL (12.0-16.0); MEAN CORPUSCULAR HEMOGLOBIN 33.2 pg (28.0-32.0); MEAN CORPUSCULAR VOLUME 96.3 fL (81.0-99.0); MEAN PLATELET VOLUME 7.9 fl (7.4-10.4); MONOCYTES % 8.9 % (2.0-8.0); NEUTROPHILS % 72.7 % (40.0-76.0); PLATELET 266 x1000/uL (130-400); RED BLOOD CELL COUNT 3.04 mill/uL (4.2-5.4); RED CELL DISTRIBUTION WIDTH 14.3 % (11.6-14.6)
[2020-02-25] MEDS ORDERED: PANTOPRAZOLE SODIUM 40 MG/VIAL IV SCH ×2 (09:00→21:00)
[2020-02-25] MEDS: ACETAMINOPHEN 325MG TABLET PO PRN (20:12)
[2020-02-26] MEDS: HYDRALAZINE HCL 10MG TABLET PO SCH ×3 (00:02→12:02)
[2020-02-26] MEDS: LABETALOL HCL 200MG TABLET PO SCH ×2 (02:35→08:05)
[2020-02-26] MEDS: ACETAMINOPHEN 325MG TABLET PO PRN (06:22)
[2020-02-26 07:31] LABS: BASOPHILS % 0.3 % (0.0-2.0); EOSINOPHILS % 2.8 % (0.0-5.0); HEMATOCRIT. 26.6 % (36.0-48.0); HEMOGLOBIN. 9.3 g/dL (12.0-16.0); LYMPHOCYTES % 24.6 % (20.0-50.0); MEAN CORPUSCULAR HEMOGLOBIN 33.3 pg (28.0-32.0); MEAN CORPUSCULAR VOLUME 95.9 fL (81.0-99.0); MEAN PLATELET VOLUME 7.8 fl (7.4-10.4); NEUTROPHILS % 61.3 % (40.0-76.0); PLATELET 242 x1000/uL (130-400); RED BLOOD CELL COUNT 2.78 mill/uL (4.2-5.4); RED CELL DISTRIBUTION WIDTH 14.1 % (11.6-14.6)
[2020-02-26 07:34] LABS: CHLORIDE 107 mEq/L (98-107)
[2020-02-28 15:06] LABS: CANNABINOID CONFIRMATION URINE Positive (.)
== END 2020-02-26 17:35 | disposition home or self-care (01) | DRG 566 ==
LOC: ER 17:12 → 8 EST LDRP 17:40 → 8 EST A/PP 02-25 10:35
PROVIDERS: ADMIT Specialist; ATTEND Specialist
DX: O99.322 Drug use complicating pregnancy, second trimester (principal); O99.342 Other mental disorders complicating pregnancy, second trimester; O99.282 Endocrine, nutritional and metabolic diseases complicating pregnancy, second trimester; O99.012 Anemia complicating pregnancy, second trimester; F32.9 Major depressive disorder, single episode, unspecified; F41.9 Anxiety disorder, unspecified; E83.41 Hypermagnesemia; F12.10 Cannabis abuse, uncomplicated; Z3A.23 23 weeks gestation of pregnancy; Z82.49 Family history of ischemic heart disease and other diseases of the circulatory system; Z83.3 Family history of diabetes mellitus; Z90.49 Acquired absence of other specified parts of digestive tract; O13.2 Gestational [pregnancy-induced] hypertension without significant proteinuria, second trimester
CPT/HCPCS: 36415; 76770; 76805; 80048; 80053; 80305; 80349; 81003; 83735; 84156; 84550; 85025; 85379; 85384; 86592; 86703; 86762; 86850; 86900; 86920; 87070; 87340; 93005; 93306; 96374; 99281; 99285; C9113; J0360; J0595; J2270; J2405; J3475; J3490

== ENCOUNTER 2020-04-20 11:24 | Emergency (ER) | payer MEDICAID ==
[~2020-04-20] VITALS: Ht 177.8 cm; Wt 105.0 kg
[2020-04-20] MEDS ORDERED: ONDANSETRON HCL 4MG/2ML INJ IV STA (12:20)
[2020-04-20] MEDS ORDERED: KETOROLAC 30MG/ML VIAL IV STA (12:20)
[2020-04-20] MEDS ORDERED: MORPHINE SULFATE 4 MG/ML CPJ (NOT FOR IM USE) IV STA (12:20)
[2020-04-20] MEDS ORDERED: SODIUM CHLORIDE 0.9% 1,000 ML IV ONE (12:30)
[2020-04-20 13:26] LABS: CHLORIDE 105 mEq/L (98-107)
[2020-04-20 13:38] LABS: BASOPHILS % 0.4 % (0.0-2.0); EOSINOPHILS % 0.2 % (0.0-5.0); HEMATOCRIT. 37.1 % (36.0-48.0); HEMOGLOBIN. 12.8 g/dL (12.0-16.0); LYMPHOCYTES % 14.8 % (20.0-50.0); MEAN CORPUSCULAR HEMOGLOBIN 31.9 pg (28.0-32.0); MEAN PLATELET VOLUME 8.6 fl (7.4-10.4); MONOCYTES % 3.6 % (2.0-8.0); PLATELET 287 x1000/uL (130-400); RED BLOOD CELL COUNT 4.03 mill/uL (4.2-5.4); RED CELL DISTRIBUTION WIDTH 13.2 % (11.6-14.6)
[2020-04-20 13:42] LABS: HCG SCREEN NEGATIVE
[2020-04-20] MEDS ORDERED: IOHEXOL-300 100 ML BOTTLE ONE (15:04)
[2020-04-20] MEDS ORDERED: POTASSIUM CHLORIDE 20MEQ TABLET SR PO ONE (15:30)
[2020-04-20 18:28] LABS: CLARITY URINE CLOUDY (CLEAR); COLOR URINE YELLOW (YELLOW); KETONES URINE 1+ (NEGATIVE); LEUKOCYTE ESTERASE URINE NEGATIVE (NEGATIVE); NITRITE URINE POSITIVE (NEGATIVE); OCCULT BLOOD URINE NEGATIVE (NEGATIVE); PROTEIN URINE TRACE (NEGATIVE); SPECIFIC GRAVITY URINE 1.086 (1.005-1.030)
[2020-04-20] MEDS ORDERED: HYDROCODONE/ACETAMINOPHEN 5/325MG TABLET PO ONE (19:00)
[2020-04-20] MEDS ORDERED: IBUPROFEN 600MG TABLET PO ONE (19:00)
[2020-04-20 19:21] VITALS: BP 214/113
== END 2020-04-21 06:57 | disposition home or self-care (01) ==
LOC: ER 11:24
DX: K52.9 Noninfective gastroenteritis and colitis, unspecified (principal); I10 Essential (primary) hypertension; Z90.49 Acquired absence of other specified parts of digestive tract; F17.290 Nicotine dependence, other tobacco product, uncomplicated
CPT/HCPCS: 36415; 74177; 80053; 81003; 83605; 83690; 84703; 85025; 93005; 96361; 96374; 96375; 99285; J1885; J2270; J2405; J7030; Q9967

== ENCOUNTER 2020-09-26 11:27 | Emergency (ER) | payer MEDICAID ==
[~2020-09-26] VITALS: Ht 172.7 cm; Wt 100.0 kg
[2020-09-26 12:04] LABS: BASOPHILS % 0.7 % (0.0-2.0); HEMATOCRIT. 41.1 % (36.0-48.0); HEMOGLOBIN. 14.2 g/dL (12.0-16.0); LYMPHOCYTES % 10.1 % (20.0-50.0); MEAN CORPUSCULAR HEMOGLOBIN 31.7 pg (28.0-32.0); MEAN CORPUSCULAR VOLUME 91.9 fL (81.0-99.0); MEAN PLATELET VOLUME 8.2 fl (7.4-10.4); MONOCYTES % 4.5 % (2.0-8.0); NEUTROPHILS % 84.7 % (40.0-76.0); PLATELET 310 x1000/uL (130-400); RED BLOOD CELL COUNT 4.47 mill/uL (4.2-5.4); RED CELL DISTRIBUTION WIDTH 13.1 % (11.6-14.6)
[2020-09-26] MEDS: SODIUM CHLORIDE 0.9% 1,000 ML IV ONE (12:04)
[2020-09-26] MEDS: METOCLOPRAMIDE HCL 10MG/2ML VIAL IV STA (12:04)
[2020-09-26] MEDS: FAMOTIDINE 20MG/2ML VIAL IV STA (12:04)
[2020-09-26 12:15] LABS: INR 1.1; PROTHROMBIN TIME 11.3 sec (9.6-11.0)
[2020-09-26 12:16] LABS: CHLORIDE 101 mEq/L (98-107)
[2020-09-26 12:18] LABS: HCG SCREEN NEGATIVE
[2020-09-26 12:20] LABS: ETHANOL BLOOD < 10 mg/dL
[2020-09-26] MEDS: KETOROLAC 15MG/ML VIAL IV NR (12:44)
[2020-09-26] MEDS ORDERED: DICYCLOMINE HCL 10MG CAPSULE PO ONE (14:00)
[2020-09-26] MEDS: ONDANSETRON HCL 4MG/2ML INJ IV ONE (14:12)
[2020-09-26] MEDS: DICYCLOMINE HCL 10MG/ML 2ML AMP IM ONE (14:13)
[2020-09-26 14:18] LABS: CLARITY URINE CLEAR (CLEAR); COLOR URINE YELLOW (YELLOW); KETONES URINE 1+ (NEGATIVE); LEUKOCYTE ESTERASE URINE TRACE (NEGATIVE); NITRITE URINE NEGATIVE (NEGATIVE); OCCULT BLOOD URINE NEGATIVE (NEGATIVE); PROTEIN URINE 2+ (NEGATIVE); SPECIFIC GRAVITY URINE 1.017 (1.005-1.030)
[2020-09-26 14:25] LABS: *AMPHETAMINES SCREEN URINE NEGATIVE (NEGATIVE); *BARBITURATES SCREEN URINE NEGATIVE (NEGATIVE); PHENCYCLIDINE URINE SCREEN NEGATIVE (NEGATIVE)
[2020-09-26 14:26] LABS: *BENZODIAZEPINES SCREEN URINE NEGATIVE (NEGATIVE); *COCAINE SCREEN URINE NEGATIVE (NEGATIVE); METHADONE URINE SCREEN NEGATIVE (NEGATIVE); OPIATES URINE SCREEN NEGATIVE (NEGATIVE)
[2020-09-26 14:31] LABS: CANNABINOID URINE SCREEN PRESUMTIVE POSITIVE (NEGATIVE)
[2020-09-26 15:30] VITALS: BP 124/86
[2020-09-26] MEDS ORDERED: LIDOCAINE 5% PATCH TOP SCH (15:30)
[2020-09-26] MEDS ORDERED: DEXAMETHASONE 10 MG/ML VIAL IV ONE (15:30)
[2020-09-26] MEDS ORDERED: DICY10CA88 MT (16:19)
[2020-09-26] MEDS ORDERED: ONDA4TAB5 MT (16:19)
[2020-09-26] MEDS ORDERED: IBUP-2028 MT (16:19)
== END 2020-09-26 16:30 | disposition home or self-care (01) ==
LOC: ER 11:30
DX: R10.11 Right upper quadrant pain (principal); J45.909 Unspecified asthma, uncomplicated; I10 Essential (primary) hypertension; Z90.49 Acquired absence of other specified parts of digestive tract
CPT/HCPCS: 36415; 74176; 80053; 80305; 80320; 81003; 83690; 84703; 85025; 85610; 93005; 96361; 96372; 96374; 96375; 99284; J0500; J1885; J2405; J2765; J3490; J7030; Z7610; G0480

== ENCOUNTER 2021-07-11 17:26 | Inpatient (IN) | payer MEDICAID ==
[~2021-07-11] VITALS: Ht 172.7 cm; Wt 95.7 kg
[~2021-07-11 17:26] MED LIST changes: +DICY10CA88 MT; +IBUP-2028 MT; +ONDA4TAB5 MT
[2021-07-11] MEDS ORDERED: METOCLOPRAMIDE HCL 10MG/2ML VIAL IV STA (17:55)
[2021-07-11] MEDS ORDERED: SODIUM CHLORIDE 0.9% 1,000 ML IV ONE (18:00)
[2021-07-11] MEDS ORDERED: MORPHINE SULFATE 4 MG/ML CPJ (NOT FOR IM USE) IV ONE (18:15)
[2021-07-11 20:45] LABS: BASOPHILS % 0.8 % (0.0-2.0); EOSINOPHILS % 0.7 % (0.0-5.0); LYMPHOCYTES % 11.7 % (20.0-50.0); MEAN CORPUSCULAR HEMOGLOBIN 30.5 pg (28.0-32.0); MEAN CORPUSCULAR VOLUME 91.7 fL (81.0-99.0); MEAN PLATELET VOLUME 8.9 fl (7.4-10.4); MONOCYTES % 3.5 % (2.0-8.0); NEUTROPHILS % 83.3 % (40.0-76.0); PLATELET 232 x1000/uL (130-400); RED BLOOD CELL COUNT 4.26 mill/uL (4.2-5.4); RED CELL DISTRIBUTION WIDTH 12.9 % (11.6-14.6)
[2021-07-11 20:50] LABS: CHLORIDE 105 mEq/L (98-107)
[2021-07-11 20:54] LABS: ETHANOL BLOOD < 10 mg/dL
[2021-07-11 22:45] LABS: CLARITY URINE CLEAR (CLEAR); COLOR URINE YELLOW (YELLOW); KETONES URINE 1+ (NEGATIVE); LEUKOCYTE ESTERASE URINE NEGATIVE (NEGATIVE); NITRITE URINE NEGATIVE (NEGATIVE); OCCULT BLOOD URINE NEGATIVE (NEGATIVE); PH URINE 7.5 (4.5-8.0); PROTEIN URINE NEGATIVE (NEGATIVE); SPECIFIC GRAVITY URINE 1.018 (1.005-1.030)
[2021-07-11] MEDS ORDERED: HYDRALAZINE 20MG/ML VIAL IV ONE (23:15)
[2021-07-11] MEDS ORDERED: ONDANSETRON HCL 4MG/2ML INJ IV ONE (23:15)
[2021-07-11] MEDS ORDERED: KETOROLAC 30MG/ML VIAL IV ONE (23:15)
[2021-07-11] MEDS: LACTATED RINGERS 1,000 ML IV SCH (23:48)
[2021-07-12] MEDS: LACTATED RINGERS 1,000 ML IV SCH (00:42)
[2021-07-12] MEDS ORDERED: ACETAMINOPHEN 325MG TABLET PO PRN (01:00)
[2021-07-12] MEDS ORDERED: HYDROCODONE/ACETAMINOPHEN 5/325MG TABLET PO PRN (01:00)
[2021-07-12] MEDS ORDERED: IPRATROPIUM/ALBUTEROL 0.5-3(2.5)MG/3ML NEB NEB PRN (01:00)
[2021-07-12] MEDS ORDERED: CLONIDINE 0.1MG TABLET PO PRN (01:00)
[2021-07-12] MEDS ORDERED: ONDANSETRON HCL 4MG/2ML INJ IV PRN (01:00)
[2021-07-12] MEDS: SODIUM CHLORIDE 0.9% 1,000 ML IV SCH ×2 (01:00→21:26)
[2021-07-12] MEDS ORDERED: MAGNESIUM/ALUMINUM HYDROXIDE/SIMETHICONE 30ML UDC PO PRN (01:00)
[2021-07-12] MEDS ORDERED: DOCUSATE SODIUM 100MG CAPSULE PO PRN (01:00)
[2021-07-12] MEDS ORDERED: ENOXAPARIN 30MG/0.3ML SYR SUBCUT SCH (09:00)
[2021-07-12] MEDS: MORPHINE SULFATE 2 MG/ML CPJ (NOT FOR IM USE) IV PRN ×3 (09:24→21:49)
[2021-07-12 09:50] VITALS: BP 175/100
[2021-07-12] MEDS ORDERED: NALOXONE HCL 0.4MG/ML VIAL IV PRN (10:00)
[2021-07-12 10:22] VITALS: BP 175/100
[2021-07-12 11:32] LABS: *AMPHETAMINES SCREEN URINE NEGATIVE (NEGATIVE); *BARBITURATES SCREEN URINE NEGATIVE (NEGATIVE); *BENZODIAZEPINES SCREEN URINE NEGATIVE (NEGATIVE); *COCAINE SCREEN URINE NEGATIVE (NEGATIVE)
[2021-07-12 11:33] LABS: METHADONE URINE SCREEN NEGATIVE (NEGATIVE); PHENCYCLIDINE URINE SCREEN NEGATIVE (NEGATIVE)
[2021-07-12 11:44] LABS: CANNABINOID URINE SCREEN PRESUMTIVE POSITIVE (NEGATIVE); OPIATES URINE SCREEN PRESUMTIVE POSITIVE (NEGATIVE)
[2021-07-12 12:00] VITALS: BP 192/98
[2021-07-12] MEDS: AMLODIPINE 5MG TABLET PO SCH (13:57)
[2021-07-12 17:09] LABS: BASOPHILS % 0.4 % (0.0-2.0); EOSINOPHILS % 1.1 % (0.0-5.0); HEMATOCRIT. 35.4 % (36.0-48.0); HEMOGLOBIN. 11.9 g/dL (12.0-16.0); LYMPHOCYTES % 26.3 % (20.0-50.0); MEAN CORPUSCULAR HEMOGLOBIN 30.9 pg (28.0-32.0); MEAN CORPUSCULAR VOLUME 92.2 fL (81.0-99.0); NEUTROPHILS % 62.2 % (40.0-76.0); PLATELET 281 x1000/uL (130-400); RED BLOOD CELL COUNT 3.84 mill/uL (4.2-5.4); RED CELL DISTRIBUTION WIDTH 13.1 % (11.6-14.6)
[2021-07-12 17:24] LABS: CHLORIDE 104 mEq/L (98-107)
[2021-07-12 17:31] LABS: LDL CHOLESTEROL 72 mg/dL (5-100)
[2021-07-12 17:33] LABS: CREATINE KINASE 119 IU/L (26-192); HDL CHOLESTEROL 50 mg/dL (40-59)
[2021-07-12 17:36] LABS: CREATINE KINASE MB FRACTION 1.7 ng/mL (0.5-3.6)
[2021-07-12] MEDS ORDERED: POTASSIUM CHLORIDE 20MEQ TABLET SR PO NR (19:45)
[2021-07-12 20:00] VITALS: BP 148/79
[2021-07-12] MEDS: ENOXAPARIN 30MG/0.3ML SYR SUBCUT SCH (21:28)
[2021-07-13] VITALS: BP 142/90
[2021-07-13 04:00] VITALS: BP 132/72
[2021-07-13 08:00] VITALS: BP 157/97
[2021-07-13] MEDS: AMLODIPINE 5MG TABLET PO SCH (08:51)
[2021-07-13] MEDS: ENOXAPARIN 30MG/0.3ML SYR SUBCUT SCH (08:52)
[2021-07-13 08:59] VITALS: BP 157/94
[2021-07-13] MEDS: MORPHINE SULFATE 2 MG/ML CPJ (NOT FOR IM USE) IV PRN (08:59)
[2021-07-13] MEDS ORDERED: POTASSIUM CHLORIDE 20MEQ/PACKET PO NR (09:30)
[2021-07-13 11:40] LABS: BASOPHILS % 0.6 % (0.0-2.0); EOSINOPHILS % 3.1 % (0.0-5.0); HEMATOCRIT. 36.5 % (36.0-48.0); HEMOGLOBIN. 12.8 g/dL (12.0-16.0); LYMPHOCYTES % 27.5 % (20.0-50.0); MEAN CORPUSCULAR HEMOGLOBIN 32.2 pg (28.0-32.0); MEAN CORPUSCULAR VOLUME 92.1 fL (81.0-99.0); MONOCYTES % 11.9 % (2.0-8.0); NEUTROPHILS % 56.9 % (40.0-76.0); PLATELET 268 x1000/uL (130-400); RED BLOOD CELL COUNT 3.96 mill/uL (4.2-5.4); RED CELL DISTRIBUTION WIDTH 13.1 % (11.6-14.6)
[2021-07-13 12:22] LABS: CHLORIDE 107 mEq/L (98-107)
[2021-07-13] MEDS ORDERED: AMLO5TAB88 PO (16:26)
== END 2021-07-13 16:57 | disposition home or self-care (01) | DRG 242 ==
LOC: ER 17:26 → MICUSO 07-12 00:36 → EDBEDREQTM 07-12 00:48 → EDBEDREQ 07-12 00:48 → 6EST 07-12 09:51
PROVIDERS: ADMIT Internal Medicine; ATTEND Internal Medicine
DX: K22.6 Gastro-esophageal laceration-hemorrhage syndrome (principal); R16.0 Hepatomegaly, not elsewhere classified; I10 Essential (primary) hypertension; E66.9 Obesity, unspecified; R11.2 Nausea with vomiting, unspecified; F12.90 Cannabis use, unspecified, uncomplicated; Z20.822 Contact with and (suspected) exposure to COVID-19; I16.0 Hypertensive urgency; Z82.49 Family history of ischemic heart disease and other diseases of the circulatory system; Z90.49 Acquired absence of other specified parts of digestive tract; Z87.19 Personal history of other diseases of the digestive system; Z68.32 Body mass index [BMI] 32.0-32.9, adult
CPT/HCPCS: 36415; 71045; 74176; 76700; 80048; 80053; 80061; 80305; 80307; 80320; 80329; 81003; 82550; 82553; 83036; 84484; 85025; 85044; 87426; 93005; 99285; J0360; J1650; J1885; J2270; J2405; J2765; J7030; J7120; G0480

== ENCOUNTER 2023-01-04 13:32 | Emergency (ER) | payer MEDICAID ==
[~2023-01-04] VITALS: Ht 180.3 cm; Wt 114.0 kg
[~2023-01-04 13:32] MED LIST changes: +ACET-3163 MT; +AMLO10TA80 MT; -CEPH-569 MT; -DICY10CA88 MT; +HYDR-4135 MT; -IBUP-2028 MT; +LOSA100T33 MT; -METH500T22 MT; +ONDA4TAB11 PO; -ONDA4TAB5 MT; +PANT40TA51 MT
[2023-01-04 13:36] VITALS: TEMP 98.7
[2023-01-04] MEDS ORDERED: ONDANSETRON HCL 4MG/2ML INJ IM SCH (13:48)
[2023-01-04] MEDS ORDERED: KETOROLAC 60MG/2ML VIAL IM SCH (13:48)
[2023-01-04] MEDS ORDERED: CYCLOBENZAPRINE 10MG TABLET PO SCH (14:00)
[2023-01-04 14:13] LABS: BASOPHILS % 0.7 % (0.0-2.0); EOSINOPHILS % 5.8 % (0.0-5.0); HEMATOCRIT. 35.8 % (36.0-48.0); HEMOGLOBIN. 12.4 g/dL (12.0-16.0); MEAN CORPUSCULAR HEMOGLOBIN 32.5 pg (28.0-32.0); MEAN CORPUSCULAR VOLUME 94.3 fL (81.0-99.0); MEAN PLATELET VOLUME 7.7 fl (7.4-10.4); MONOCYTES % 10.7 % (2.0-8.0); NEUTROPHILS % 48.8 % (40.0-76.0); PLATELET 304 x1000/uL (130-400); RED CELL DISTRIBUTION WIDTH 13.7 % (11.6-14.6)
[2023-01-04 14:32] LABS: HCG SCREEN NEGATIVE
[2023-01-04 14:34] LABS: CHLORIDE 111 mEq/L (98-107)
[2023-01-04] MEDS ORDERED: MORPHINE SULFATE 4 MG/ML CPJ (NOT FOR IM USE) IV NR (14:43)
[2023-01-04] MEDS ORDERED: SODIUM CHLORIDE 0.9% 1,000 ML IV NR (14:45)
[2023-01-04] MEDS ORDERED: LEVETIRACETAM 500MG PREMIX 100 ML IV ONE (16:00)
[2023-01-04 16:02] VITALS: BP 154/102; PULSE 86; RESP 20
[2023-01-04] MEDS ORDERED: NAPR-681 PO (16:55)
[2023-01-04] MEDS ORDERED: BISM-77 MT (16:55)
[2023-01-04] MEDS ORDERED: CYCL5TAB MT (16:55)
[2023-01-04] MEDS ORDERED: ONDA4TAB50 PO (16:55)
== END 2023-01-04 18:58 | disposition home or self-care (01) ==
LOC: ER 13:32
DX: G40.909 Epilepsy, unspecified, not intractable, without status epilepticus (principal); K52.9 Noninfective gastroenteritis and colitis, unspecified
CPT/HCPCS: 80053; 81025; 84703; 83690; 85025; 36415; 74176; 96374; 99285; J1885; J2405; J2270; Z7610